=== PATIENT | male | born 1955 | race African-American/Black ===

== ENCOUNTER 2019-08-26 13:56 | Inpatient (IN) | payer OTHER ==
[2019-08-26 16:20] VITALS: BMI 38.5
--- NOTE | 2019-08-26 16:57 | HP ---
CIWA Score Nausea/Vomitin-No Nausea/No Vomiting Muscle Tremors: None Anxiety: 0-No Anxiety, at Ease Agitation: 0-Normal Activity Paroxysmal Sweats: No Perspiration Orientation: 0-Oriented Tacttile Disturbances: 1-Very Mild Itch/Numbness (tingling in R Carpal tunnel syndrome) Auditory Disturbances: 0-None Visual Disturbances: 0-None - Admission Criteria OASAS Guidelines: Admission for Medically Managed Detox: Requires at least one of the followin. CIWA greater than 12 2. Seizures within the past 24 hours 3. Delirium tremens within the past 24 hours 4. Hallucinations within the past 24 hours 5. Acute intervention needed for co occurring medical disorder 6. Acute intervention needed for co occurring psychiatric disorder 7. Severe withdrawal that cannot be handled at a lower level of care (continued vomiting, continued diarrhea, abnormal vital signs) requiring intravenous medication and/or fluids 8. Admitting History and Physical - Admission Chief Complaint: Rehab from THC and cocaine History of Present Illness: Pt is a 63 PMx of hypothyroidism, HTN, on seizure, CVA, depression, anxiety, bipolar here for rehab from cocaine and marijuana. Also uses alcohol. Will go back to [facility] after rehab here. Fell off recovery 09/29 again. Had stroke 2018, arm and leg on L with slurred speech. [facility]- [facility]-March 2018- Jun 2019, regular floor of [facility] for housing so started a cycle -depression, anxiety ETOH Last drink - [place] ice tea Monday Beer- 6 pack daily 1 pint- [place] icetea (wine coolant) No shakes, seizures or blackouts when he doesn't drink THC- utox with THC $10 a day (or 5 per week) Smokes- 2-3 joints daily Last use 9am addicted from 20yrs to THC Cocaine- utox with cocaine gets depressed Uses up $150 a day Last use monday- used $100-150 dollars Started at sniffing at 37yrs -cocaine Cocaine-started smoking- 41yrs Clean off cocaine until 5 months ago, became homeless Used the excuse of the stroke to start using drugs again Nicotine 2 cigs per day Some days none does not have a craving for cigs does not need patch or gum All:Eggs, makes pt throw up no allergies Medical hx: Hypothyroidism- synthroid 150mcg Metoprolol-100, amlodipine 10, lisinopril- 20mg Seizure-never had but on a seizure med, prophylaxis for CVA from air embolism from a missed vein [facility] pharmacy-took all meds today TB test, HIV test neg- March 2018 Never had hepatitis test SX: Gall bladder over 20 years SHx Has supportive family- fiancee, kids, siblings Kids -30, 35yrs. live in [place], aware of pts drug use No current problems with law Incarcerated non violent low level crime - 5 years ago, no court case Has not worked since stroke, worked in [employer] in the past FHx: Addiction hx-Neg Medical hx-HTN- sister, borderline DM-Sister Rehab for cocaine and THC Will cont anti HTN-change amlodipine 10mg HS, cont metoprolol, lisinopril- unable to verify meds EKG- vent rate 68bpm, Q waves , possible LVH, TWI inferiolat leads, normal axis , normal interval, QTC- 501- MaOxide 800mg one time ordered History Source: Patient Limitations to Obtaining History: No Limitations - 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: 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 Cardiovascular: Yes: HTN - Smoking History Smoking history: Current some day smoker Have you smoked in the past 12 months: Yes Aproximately how many cigarettes per day: 1 - Alcohol/Substance Use Hx Alcohol Use: Yes History of Substance Use: reports: Cocaine, Marijuana - Social History Usual Living Arrangement: Yes: Alone Do you think of yourself as: Straight/Heterosexual History of Recent Travel: No Admission ROS S - HPI Allergies/Adverse Reactions: Allergies Allergy/AdvReac Type Severity Reaction Status Date / Time egg AdvReac Intermediate Vomiting Verified 08/26/19 16:15 Egg Derived AdvReac Intermediate Vomiting Verified 08/26/19 16:15 - Ebola screening Have you traveled outside of the country in the last 21 days: No Have you had contact with anyone from an Ebola affected area: No Do you have a fever: No - Review of Systems Constitutional: No Symptoms Reported EENT: reports: Nose Congestion Respiratory: reports: No Symptoms reported Cardiac: reports: No Symptoms Reported GI: reports: No Symptoms Reported : reports: Frequency Musculoskeletal: reports: No Symptoms Reported Integumentary: reports: No Symptoms Reported Neuro: reports: Numbness Endocrine: reports: No Symptoms Reported Hematology: reports: No Symptoms Reported Psychiatric: reports: Mood/Affect Appropiate Patient History - Patient Medical History Hx Hypertension: Yes HX Cerebrovascular Accident: Yes Hx Depression: Yes Hx Bipolar Disorder: Yes - Patient Surgical History Past Surgical History: Yes Hx Abdominal Surgery: Yes (Gall bladder) - PPD History Previous Implant?: Yes Implanted On Prior R Admission?: No - Reproductive History Patient is a Female of Child Bearing Age (11 -55 yrs old): No - Smoking Cessation Smoking history: Current some day smoker Have you smoked in the past 12 months: Yes Aproximately how many cigarettes per day: 1 Hx Chewing Tobacco Use: No Initiated information on smoking cessation: Yes 'Breaking Loose' booklet given: 08/26/19 - Substance & Tx. History Hx Alcohol Use: Yes Hx Substance Use: Yes Substance Use Type: Alcohol, Cocaine, Marijuana - Substances abused Cocaine Substance route: Smoking Frequency: Daily Amount used: $100 Age of first use: 37 Date of last use: 08/23/19 Marijuana/Hashish Substance route: Smoking Frequency: Daily Amount used: $10 Age of first use: 20 Date of last use: 08/25/19 Admission Physical Exam [facility] - Vital Signs Vital Signs: Vital Signs - 24 hr 08/26/19 16:10 Temperature 94.4 F L Pulse Rate 80 Respiratory 17 Rate Blood Pressure 176/95 H - Physical General Appearance: Yes: Obese HEENTM: Yes: Within Normal Limits Respiratory: Yes: Chest Non-Tender, Lungs Clear, Normal Breath Sounds Neck: Yes: Within Normal Limits Cardiology: Yes: Regular Rhythm, S1, S2 Genitourinary: Yes: Within Normal Limits Back: Yes: Within Normal Limits Musculoskeletal: Yes: Other (ambulates with cane) Extremities: Yes: Pedal Edema (b/l 1+ up to mid mccarthy) Neurological: Yes: Within Normal Limits, Motor Strength 5/5 (except LUE and LLE 4/5, residual deficit) Integumentary: Yes: Within Normal Limits Lymphatic: Yes: Within Normal Limits - Diagnostic (1) Cocaine abuse Current Visit: Yes Status: Acute (2) Tetrahydrocannabinol (THC) dependence Current Visit: Yes Status: Acute Cleared for Admission S - Detox or Rehab [facility] Level of Care: Medically Supervised Breathalyzer - Breathalyzer Breathalyzer: 0 Inpatient Rehab Admission - Rehab Decision to Admit Inpatient rehab admission?: Yes - Initial Determination Are CD services needed?: Yes Free of communicable disease: Yes Not in need of hospitalization: Yes - Rehab Admission Criteria Previous failed treatment: Yes Poor recovery environment: Yes Comorbidities: Yes Lacks judgement: Yes Patient is meeting Inpatient Rehab admission criteria:: Yes
[2019-08-26] MEDS ORDERED: MAG HYDROX/AL HYDROX/SIMETH 30 ML UNIT-DOSE CUP PO PRN (17:40)
[2019-08-26] MEDS ORDERED: LOPERAMIDE HCL 2 MG CAPSULE PO PRN (17:40)
[2019-08-26] MEDS ORDERED: MAGNESIUM CITRATE 300 ML BOTTLE PO PRN (17:40)
[2019-08-26] MEDS ORDERED: IBUPROFEN 400 MG TABLET (FP) PO PRN (17:40)
[2019-08-26] MEDS ORDERED: MENTHOL/PHENOL 1 EACH UD MM PRN (17:40)
[2019-08-26] MEDS ORDERED: P-EPHED 60MG/TRIPROLIDI 2.5MG TABLET PO PRN (17:40)
[2019-08-26] MEDS ORDERED: guaiFENesin 200 MG/10 ML 10 ML UNIT-DOSE CUPS PO PRN (17:40)
[2019-08-26] MEDS ORDERED: ACETAMINOPHEN 325 MG TABLET (FP) PO PRN (17:40)
[2019-08-26] MEDS ORDERED: MAGNESIUM HYDROX 2400MG/30ML ORAL SUSPENSION 30 ML CUP PO PRN (17:40)
--- NOTE | 2019-08-26 17:40 | PN ---
Teaching Attending Note Name of Resident: Afshan Heath ATTENDING PHYSICIAN STATEMENT I saw and evaluated the patient. I reviewed the resident's note and discussed the case with the resident. I agree with the resident's findings and plan as documented. SUBJECTIVE: 63 yo with multiple med problems here for cocaine use disorder and marijuana use disorder. Uses daily for self treatment of depression. Occ alcohol use. Here for rehab. OBJECTIVE: Vital Signs - 24 hr 08/26/19 08/26/19 16:10 16:44 Temperature 94.4 F L 97.4 F L Pulse Rate 80 80 Respiratory 17 17 Rate Blood Pressure 176/95 H 176/95 H ASSESSMENT AND PLAN: AUD- here for rehab from cocaine/marijuana, occ alcohol use continue treatment for HTN.
[2019-08-26] MEDS ORDERED: MAGNESIUM OXIDE 400 MG TABLET (FP) PO ONE (19:30)
[2019-08-26] MEDS ORDERED: TUBERCULIN PPD 5 TU/0.1ML VIAL ID ONE (22:09)
[2019-08-26] MEDS: amLODIPine BESYLATE 10 MG TABLET (FP) PO SCH (22:10)
[2019-08-26] MEDS: THIAMINE HCL 100 MG TABLET (FP) PO SCH (22:15)
[2019-08-27] MEDS: LEVOTHYROXINE NA 150 MCG TABLET PO SCH (06:05)
--- NOTE | 2019-08-27 09:08 | EKG ---
Test Reason : Blood Pressure : / mmHG Vent. Rate : 068 BPM Atrial Rate : 068 BPM P-R Int : 158 ms QRS Dur : 086 ms QT Int : 472 ms P-R-T Axes : 066 -13 004 degrees QTc Int : 501 ms NORMAL SINUS RHYTHM MINIMAL VOLTAGE CRITERIA FOR LVH, MAY BE NORMAL VARIANT NONSPECIFIC ST AND T WAVE ABNORMALITY PROLONGED QT ABNORMAL ECG NO PREVIOUS ECGS AVAILABLE Confirmed by Moises Valladares MD ([id number]) on 08/27/2019 9:08:09 AM Referred By: Confirmed By:Moises Valladares MD
--- NOTE | 2019-08-27 09:16 | CONSULT ---
[facility] Psychiatric Consult - Data Date of interview: 08/27/19 Admission source: [facility] Identifying data: Patient is a 63 year old single male, without children, unemployed (disabled), currently homeless, and is supported by [facility]. This is patient's first admission to [facility]. Patient admitted to for cocaine dependence. Substance Abuse History: Smoking Cessation. Smoking history: Current some day smoker. Have you smoked in the past 12 months: Yes. Aproximately how many cigarettes per day: 1. Hx Chewing Tobacco Use: No. Initiated information on smoking cessation: Yes. 'Breaking Loose' booklet given: 08/26/19. - Substance & Tx. History. Hx Alcohol Use: Yes. Hx Substance Use: Yes. Substance Use Type : Alcohol, Cocaine, Marijuana. - Substances abused. Cocaine. Substance route: Smoking. Frequency: Daily. Amount used: $100. Age of first use: 37. Date of last use: 08/23/19. Marijuana/Hashish. Substance route: Smoking. Frequency: Daily. Amount used: $10. Age of first use: 20. Date of last use: 08/25/19 Medical History: Hypothyroidism, hypertension, seizures, CVA Psychiatric History: Mr. Chaudhry's first psychiatric contact was approximately five years ago at [facility] in [place], [place]. States he saw the psychiatrist and therapist for two years to address any issues he was experiencing during that time. He reports being diagnosed with Bipolar disorder but never accepted medications. Mr. Chaudhry denies history of psychiatric hospitalization and suicide attempt. At present he reports feeling sad due to relapsing. Physical/Sexual Abuse/Trauma History: denies. Mental Status Exam - Mental Status Exam Alert and Oriented to: Time, Place, Person Cognitive Function: Good Patient Appearance: Well Groomed Mood: Withdrawn Affect: Mood Congruent Patient Behavior: Fatigued, Cooperative Speech Pattern: Appropriate Voice Loudness: Mildly Soft/Quiet Thought Process: Goal Oriented Thought Disorder: Not Present Hallucinations: Denies Suicidal Ideation: Denies Homicidal Ideation: Denies Insight/Judgement: Poor Sleep: Fair Appetite: Fair Muscle strength/Tone: Normal Gait/Station: Other (Ambulates with a cane.) Psychiatric Findings - Problem List ([place] 1, 2,3) (1) Substance induced mood disorder Current Visit: Yes Status: Acute (2) Cocaine abuse Current Visit: Yes Status: Acute - Initial Treatment Plan Initial Treatment Plan: Psychoeducation provided. Rehab in progress. Observation.
[2019-08-27] MEDS ORDERED: amLODIPine BESYLATE 10 MG TABLET (FP) PO SCH (10:00)
[2019-08-27] MEDS: PRENATAL VITAMINS W/ FOLIC ACID TABLET (FP) PO SCH (10:16)
[2019-08-27] MEDS: LISINOPRIL 20 MG TABLET (FP) PO SCH (10:16)
[2019-08-27 11:02] LABS: URINE APPEARANCE CLEAR; URINE BILIRUBIN NEGATIVE (NEGATIVE); URINE COLOR YELLOW; URINE GLUCOSE (UA) NEGATIVE (NEGATIVE); URINE KETONE NEGATIVE (NEGATIVE); URINE LEUK ESTERASE NEGATIVE (NEGATIVE); URINE NITRITE NEGATIVE (NEGATIVE); URINE PROTEIN NEGATIVE (NEGATIVE)
[2019-08-27 12:05] LABS: HEMOGLOBIN 13.9 GM/dL (11.7-16.9); MCHC 32.3 g/dl (32.0-35.9); MEAN CELL VOLUME 80.5 fl (80-96); MEAN PLT VOLUME 9.7 fl (7.5-11.1); PLATELET COUNT 199 K/MM3 (134-434); RBC 5.34 M/mm3 (4.00-5.60); RDW 17.5 % (11.9-15.9); WHITE BLOOD COUNT 4.7 K/mm3 (4.0-10.0)
[2019-08-27 12:12] LABS: BILIRUBIN,TOTAL 0.6 mg/dL (0.2-1); BLOOD UREA NITROGEN 12.5 mg/dL (7-18); CREATININE 1.1 mg/dL (0.55-1.3); POTASSIUM 3.9 mmol/L (3.5-5.1); TOT PROT 6.6 g/dl (6.4-8.2)
[2019-08-27] MEDS: amLODIPine BESYLATE 10 MG TABLET (FP) PO SCH (21:41)
[2019-08-27] MEDS: THIAMINE HCL 100 MG TABLET (FP) PO SCH (21:42)
[2019-08-28] MEDS: LEVOTHYROXINE NA 150 MCG TABLET PO SCH (06:27)
[2019-08-28] MEDS: LISINOPRIL 20 MG TABLET (FP) PO SCH (10:00)
[2019-08-28] MEDS: PRENATAL VITAMINS W/ FOLIC ACID TABLET (FP) PO SCH (10:01)
--- NOTE | 2019-08-28 11:16 | PN ---
S Progress Note (SOAP) Subjective: Admitted to [facility] [place] [facility] PMHx: History of Present Illness: Pt is a 63 PMx of hypothyroidism, HTN, on seizure, CVA, depression, anxiety, bipolar here for rehab from cocaine and marijuana. Also uses alcohol. Will go back to [facility] after rehab here. Fell off recovery 09/29 again. Had stroke 2017, arm and leg on L with slurred speech. TBI prog- [facility]-March 2018- Jun 2019, regular floor of [facility] for housing so started a cycle -depression, anxiety ETOH Last drink - [place] ice tea Monday Beer- 6 pack daily 1 pint- [place] icetea (wine coolant) No shakes, seizures or blackouts when he doesn't drink THC- utox with THC $10 a day (or 5 per week) Smokes- 2-3 joints daily Last use 9am addicted from 20yrs to THC Cocaine- utox with cocaine gets depressed Uses up $150 a day Last use monday- used $100-150 dollars Started at sniffing at 37yrs -cocaine Cocaine-started smoking- 41yrs Clean off cocaine until 5 months ago, became homeless Used the excuse of the stroke to start using drugs again Nicotine 2 cigs per day Some days none does not have a craving for cigs does not need patch or gum Medical hx: Hypothyroidism- synthroid 150mcg Metoprolol-100, amlodipine 10, lisinopril- 20mg Seizure-never had but on a seizure med, prophylaxis for CVA from air embolism from a missed vein TB test, HIV test neg- March 2018 Never had hepatitis test SX: Gall bladder over 20 years SHx Has supportive family- fiancee, kids, siblings Kids -30, 35yrs. 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
[2019-08-28] MEDS: THIAMINE HCL 100 MG TABLET (FP) PO SCH (21:40)
[2019-08-28] MEDS: amLODIPine BESYLATE 10 MG TABLET (FP) PO SCH (21:40)
[2019-08-29] MEDS: LEVOTHYROXINE NA 150 MCG TABLET PO SCH (06:04)
[2019-08-29] MEDS: PRENATAL VITAMINS W/ FOLIC ACID TABLET (FP) PO SCH (10:09)
[2019-08-29] MEDS: LISINOPRIL 20 MG TABLET (FP) PO SCH (10:09)
[2019-08-29] MEDS ORDERED: INSULIN (NOVOLOG) ASPART 100 UNITS/ML 10ML VIAL ONE (11:54)
[2019-08-29] MEDS: THIAMINE HCL 100 MG TABLET (FP) PO SCH (21:00)
[2019-08-29] MEDS: amLODIPine BESYLATE 10 MG TABLET (FP) PO SCH (21:00)
[2019-08-30] MEDS: LEVOTHYROXINE 100 MCG, LEVOTHYROXINE 50 MCG PO SCH (06:17)
[2019-08-30] MEDS ORDERED: cloNIDine HCL 0.1 MG TABLET PO ONE (07:25)
--- NOTE | 2019-08-30 07:29 | PN ---
[facility] Progress Note Note: Patient's blood pressure is B/P Patient is asymptomatic Vital Signs - 8 hr 08/30/19 08/30/19 08/30/19 00:30 03:30 06:58 Temperature 97.3 F L Pulse Rate 56 L Respiratory 20 18 18 Rate Blood Pressure 158/101 H 08/30/19 07:24 Temperature Pulse Rate Respiratory Rate Blood Pressure 165/93 Action: Clonidine 0.1mg tablet oral
[2019-08-30] MEDS: PRENATAL VITAMINS W/ FOLIC ACID TABLET (FP) PO SCH (10:24)
[2019-08-30] MEDS: LISINOPRIL 20 MG TABLET (FP) PO SCH (10:24)
--- NOTE | 2019-08-30 14:02 | PN ---
[facility] Progress Note (SOAP) Subjective: Patient wants his BP medication reviewed. States he has his medications downstairs. BP is consistently elevated. Objective: 08/30/19 14:18 Vital Signs (72 hours) 08/28/19 08/28/19 08/28/19 00:30 03:30 07:03 Temperature 97 F L Pulse Rate 55 L Respiratory 18 18 18 Rate Blood Pressure 150/91 08/28/19 08/28/19 08/29/19 11:17 20:46 00:30 Temperature 97 F L Pulse Rate 61 56 L Respiratory 18 18 18 Rate Blood Pressure 148/96 175/99 H 08/29/19 08/29/19 08/29/19 03:30 06:42 09:30 Temperature 97.5 F L Pulse Rate 56 L 61 Respiratory 18 18 18 Rate Blood Pressure 158/98 159/92 08/29/19 08/30/19 08/30/19 21:30 00:30 03:30 Temperature Pulse Rate 54 L Respiratory 18 20 18 Rate Blood Pressure 157/86 08/30/19 08/30/19 08/30/19 06:58 07:24 10:00 Temperature 97.3 F L 98.1 F Pulse Rate 56 L 56 L Respiratory 18 19 Rate Blood Pressure 158/101 H 165/93 141/87 08/30/19 14:19 P/E; General: no apparent distress HEENTM:PERRLA NEck: supple Lungs: clear Heart: s1 s2 Assessment: Hypertension 08/30/19 14:19 Plan: medications reviewed. He is getting all prescribed medications. However, he takes the metropolol twice a day and it is on his medication list as once a day. This has been corrected. Will continue to monitor.
[2019-08-30] MEDS ORDERED: PT OWN MED DRAWER 7, Y5N ONE ×2 (16:01→21:36)
[2019-08-30] MEDS: MELATONIN 5 MG TABLETS PO PRN (22:07)
[2019-08-30] MEDS: amLODIPine BESYLATE 10 MG TABLET (FP) PO SCH (22:07)
[2019-08-30] MEDS: THIAMINE HCL 100 MG TABLET (FP) PO SCH (22:08)
[2019-08-31] MEDS: LEVOTHYROXINE 100 MCG, LEVOTHYROXINE 50 MCG PO SCH (06:46)
[2019-08-31] MEDS: PRENATAL VITAMINS W/ FOLIC ACID TABLET (FP) PO SCH (10:03)
[2019-08-31] MEDS: LISINOPRIL 20 MG TABLET (FP) PO SCH (10:03)
[2019-08-31] MEDS: amLODIPine BESYLATE 10 MG TABLET (FP) PO SCH (21:46)
[2019-08-31] MEDS: THIAMINE HCL 100 MG TABLET (FP) PO SCH (21:46)
[2019-08-31] MEDS: MELATONIN 5 MG TABLETS PO PRN (21:47)
[2019-09-01] MEDS: LEVOTHYROXINE 100 MCG, LEVOTHYROXINE 50 MCG PO SCH (06:43)
[2019-09-01] MEDS: LISINOPRIL 20 MG TABLET (FP) PO SCH (09:40)
[2019-09-01] MEDS: PRENATAL VITAMINS W/ FOLIC ACID TABLET (FP) PO SCH (09:40)
[2019-09-01] MEDS: amLODIPine BESYLATE 10 MG TABLET (FP) PO SCH (21:33)
[2019-09-01] MEDS: THIAMINE HCL 100 MG TABLET (FP) PO SCH (21:33)
[2019-09-02] MEDS: LEVOTHYROXINE 100 MCG, LEVOTHYROXINE 50 MCG PO SCH (06:08)
[2019-09-02] MEDS: PRENATAL VITAMINS W/ FOLIC ACID TABLET (FP) PO SCH (10:15)
[2019-09-02] MEDS: LISINOPRIL 20 MG TABLET (FP) PO SCH (10:15)
--- NOTE | 2019-09-02 10:54 | PN ---
[facility] Progress Note Note: PATIENT STATES HE BP MEDICATIONS WERE CHANGED PRIOR TO ADMISSION AT [facility] BUT DOES NOT KNOW NAMES OF MEDICATIONS. HIS MEDICAL RECORDS ARE AT [facility] AND HE WAS REFERRED TO FOLLOW UP WITH COUNSELOR TO SIGN CONSENT TO OBTAIN RECORDS ASSESS HIS MEDICATION PROFILE. WILL CONTINUE CURRENT MEDICATION REGIMEN ORDERED. PATIENT'S BP HAS BEEN ELEVATED, REFUSED DOSE LAST NIGHT. HE DENIES CHEST PAIN, SOB AND DIZZINESS. HE WAS ADVISED TO TAKE MEDICATION ORDERED WHICH HE STATES HE WILL COMPLY. Vital Signs (72 hours) 08/30/19 08/31/19 08/31/19 21:34 00:30 03:30 Temperature Pulse Rate 53 L Respiratory 18 18 18 Rate Blood Pressure 153/88 08/31/19 08/31/19 08/31/19 07:01 09:30 22:00 Temperature 98.3 F Pulse Rate 57 L 53 L 54 L Respiratory 18 Rate Blood Pressure 163/93 156/98 171/79 H 09/01/19 09/01/19 09/01/19 00:30 03:30 06:55 Temperature 97.7 F Pulse Rate 51 L Respiratory 18 18 20 Rate Blood Pressure 154/89 09/01/19 09/01/19 09/02/19 09:30 20:32 03:30 Temperature Pulse Rate 55 L 54 L Respiratory 18 18 18 Rate Blood Pressure 145/91 161/83 09/02/19 09/02/19 09/02/19 06:47 07:15 09:30 Temperature 97.9 F Pulse Rate 51 L 57 L Respiratory 18 18 Rate Blood Pressure 181/96 H 181/81 H 156/97
[2019-09-02] MEDS: amLODIPine BESYLATE 10 MG TABLET (FP) PO SCH (22:27)
[2019-09-02] MEDS: THIAMINE HCL 100 MG TABLET (FP) PO SCH (22:27)
[2019-09-03] MEDS: LEVOTHYROXINE 100 MCG, LEVOTHYROXINE 50 MCG PO SCH (06:02)
[2019-09-03] MEDS: PRENATAL VITAMINS W/ FOLIC ACID TABLET (FP) PO SCH (09:37)
[2019-09-03] MEDS: LISINOPRIL 20 MG TABLET (FP) PO SCH ×2 (09:37→21:27)
--- NOTE | 2019-09-03 14:49 | PN ---
[facility] Progress Note (SOAP) Subjective: Continues with elevated BP Objective: 09/03/19 14:47 General: No apparent distress HEENTM: normocephalic, PERRLA Lungs: clear Heart: s1 s2 ABD: +B Neuro: CM 2-12 intact, muscle strength equal Assessment: HTN 09/03/19 14:48 Plan: Increased lisinopril to 20mg BID. Will continue to monitor.
[2019-09-03] MEDS ORDERED: PT OWN MED DRAWER 7, Y5N ONE (19:10)
[2019-09-03] MEDS: amLODIPine BESYLATE 10 MG TABLET (FP) PO SCH (21:27)
[2019-09-03] MEDS: THIAMINE HCL 100 MG TABLET (FP) PO SCH (21:27)
[2019-09-03] MEDS: MELATONIN 5 MG TABLETS PO PRN (21:27)
[2019-09-04] MEDS: LEVOTHYROXINE 100 MCG, LEVOTHYROXINE 50 MCG PO SCH (06:25)
[2019-09-04] MEDS: LISINOPRIL 20 MG TABLET (FP) PO SCH ×2 (10:15→21:35)
[2019-09-04] MEDS: PRENATAL VITAMINS W/ FOLIC ACID TABLET (FP) PO SCH (10:15)
[2019-09-04] MEDS: MELATONIN 5 MG TABLETS PO PRN (21:35)
[2019-09-04] MEDS: amLODIPine BESYLATE 10 MG TABLET (FP) PO SCH (21:35)
[2019-09-04] MEDS: THIAMINE HCL 100 MG TABLET (FP) PO SCH (21:35)
[2019-09-05] MEDS ORDERED: PT OWN MED DRAWER 7, Y5N ONE (04:17)
[2019-09-05] MEDS: LEVOTHYROXINE 100 MCG, LEVOTHYROXINE 50 MCG PO SCH (06:38)
[2019-09-05] MEDS: PRENATAL VITAMINS W/ FOLIC ACID TABLET (FP) PO SCH (10:11)
[2019-09-05] MEDS: LISINOPRIL 20 MG TABLET (FP) PO SCH ×2 (10:11→21:44)
[2019-09-05] MEDS: MELATONIN 5 MG TABLETS PO PRN (21:44)
[2019-09-05] MEDS: THIAMINE HCL 100 MG TABLET (FP) PO SCH (21:44)
[2019-09-05] MEDS: amLODIPine BESYLATE 10 MG TABLET (FP) PO SCH (21:44)
[2019-09-06] MEDS: LEVOTHYROXINE 100 MCG, LEVOTHYROXINE 50 MCG PO SCH (06:56)
[2019-09-06] MEDS ORDERED: PT OWN MED DRAWER 7, Y5N ONE (08:27)
[2019-09-06] MEDS: LISINOPRIL 20 MG TABLET (FP) PO SCH ×2 (10:24→21:38)
[2019-09-06] MEDS: PRENATAL VITAMINS W/ FOLIC ACID TABLET (FP) PO SCH (10:24)
--- NOTE | 2019-09-06 15:10 | PN ---
[facility] Progress Note Note: Patient states he is taking seizure medication after having CVA. Last dose two weeks ago. Name of medication unknown, listed pharmacy: [facility] called, no answer-only personal recording of female person, no external hx of medications available. Patient advised to call [facility] to have hospital records faxed to [facility]. Vital Signs Temperature 98.2 F 09/06/19 07:22 Pulse Rate 53 L 09/06/19 09:10 Respiratory Rate 18 09/06/19 07:22 Blood Pressure 148/99 09/06/19 09:10 O2 Sat by Pulse Oximetry (%)
[2019-09-06] MEDS: amLODIPine BESYLATE 10 MG TABLET (FP) PO SCH (21:38)
[2019-09-06] MEDS: THIAMINE HCL 100 MG TABLET (FP) PO SCH (21:38)
[2019-09-06] MEDS: MELATONIN 5 MG TABLETS PO PRN (21:38)
[2019-09-07] MEDS: LEVOTHYROXINE 100 MCG, LEVOTHYROXINE 50 MCG PO SCH (06:18)
[2019-09-07] MEDS: LISINOPRIL 20 MG TABLET (FP) PO SCH ×2 (10:12→22:05)
[2019-09-07] MEDS: PRENATAL VITAMINS W/ FOLIC ACID TABLET (FP) PO SCH (10:12)
[2019-09-07] MEDS: THIAMINE HCL 100 MG TABLET (FP) PO SCH (22:05)
[2019-09-07] MEDS: amLODIPine BESYLATE 10 MG TABLET (FP) PO SCH (22:05)
[2019-09-08] MEDS: LEVOTHYROXINE 100 MCG, LEVOTHYROXINE 50 MCG PO SCH (06:30)
[2019-09-08] MEDS: LISINOPRIL 20 MG TABLET (FP) PO SCH ×2 (09:50→23:33)
[2019-09-08] MEDS: PRENATAL VITAMINS W/ FOLIC ACID TABLET (FP) PO SCH (09:50)
[2019-09-08] MEDS ORDERED: PT OWN MED DRAWER 7, Y5N ONE (14:50)
[2019-09-08] MEDS: THIAMINE HCL 100 MG TABLET (FP) PO SCH (23:33)
[2019-09-08] MEDS: amLODIPine BESYLATE 10 MG TABLET (FP) PO SCH (23:33)
[2019-09-09] MEDS: LEVOTHYROXINE 100 MCG, LEVOTHYROXINE 50 MCG PO SCH (06:27)
[2019-09-09] MEDS: LISINOPRIL 20 MG TABLET (FP) PO SCH ×2 (09:58→21:44)
[2019-09-09] MEDS: PRENATAL VITAMINS W/ FOLIC ACID TABLET (FP) PO SCH (09:58)
[2019-09-09] MEDS: CYCLOBENZAPRINE HCL 5 MG TABLET PO SCH ×2 (15:55→21:44)
[2019-09-09] MEDS: THIAMINE HCL 100 MG TABLET (FP) PO SCH (21:44)
[2019-09-09] MEDS: amLODIPine BESYLATE 10 MG TABLET (FP) PO SCH (21:44)
[2019-09-09] MEDS: MELATONIN 5 MG TABLETS PO PRN (21:44)
[2019-09-10] MEDS: CYCLOBENZAPRINE HCL 5 MG TABLET PO SCH ×3 (05:48→21:57)
[2019-09-10] MEDS: LEVOTHYROXINE 100 MCG, LEVOTHYROXINE 50 MCG PO SCH (06:05)
[2019-09-10] MEDS: PRENATAL VITAMINS W/ FOLIC ACID TABLET (FP) PO SCH (09:52)
[2019-09-10] MEDS: LISINOPRIL 20 MG TABLET (FP) PO SCH ×2 (09:52→21:57)
[2019-09-10] MEDS: amLODIPine BESYLATE 10 MG TABLET (FP) PO SCH (21:57)
[2019-09-10] MEDS: THIAMINE HCL 100 MG TABLET (FP) PO SCH (21:57)
[2019-09-11] MEDS: CYCLOBENZAPRINE HCL 5 MG TABLET PO SCH ×3 (06:26→21:45)
[2019-09-11] MEDS: LEVOTHYROXINE 100 MCG, LEVOTHYROXINE 50 MCG PO SCH (06:26)
[2019-09-11] MEDS: LISINOPRIL 20 MG TABLET (FP) PO SCH ×2 (10:00→21:45)
[2019-09-11] MEDS: PRENATAL VITAMINS W/ FOLIC ACID TABLET (FP) PO SCH (10:00)
[2019-09-11] MEDS: THIAMINE HCL 100 MG TABLET (FP) PO SCH (21:43)
[2019-09-11] MEDS: MELATONIN 5 MG TABLETS PO PRN (21:43)
[2019-09-11] MEDS: amLODIPine BESYLATE 10 MG TABLET (FP) PO SCH (21:45)
[2019-09-12] MEDS: CYCLOBENZAPRINE HCL 5 MG TABLET PO SCH ×3 (06:41→21:33)
[2019-09-12] MEDS: LEVOTHYROXINE 100 MCG, LEVOTHYROXINE 50 MCG PO SCH (06:41)
[2019-09-12] MEDS: PRENATAL VITAMINS W/ FOLIC ACID TABLET (FP) PO SCH (10:02)
[2019-09-12] MEDS: LISINOPRIL 20 MG TABLET (FP) PO SCH ×2 (10:03→21:33)
[2019-09-12] MEDS ORDERED: PT OWN MED DRAWER 7, Y5N ONE (20:11)
[2019-09-12] MEDS: THIAMINE HCL 100 MG TABLET (FP) PO SCH (21:33)
[2019-09-12] MEDS: amLODIPine BESYLATE 10 MG TABLET (FP) PO SCH (21:33)
[2019-09-13] MEDS: CYCLOBENZAPRINE HCL 5 MG TABLET PO SCH (05:58)
[2019-09-13] MEDS: LEVOTHYROXINE 100 MCG, LEVOTHYROXINE 50 MCG PO SCH (06:01)
[2019-09-13 06:31] VITALS: BP 153/89; PULSE 62; TEMP 98.4
--- NOTE | 2019-09-13 08:38 | DS ---
[facility] Rehab Discharge Summary - [facility] Rehab Discharge Summary Admission Date: 08/26/19 Discharge Date: 09/13/19 - History Present History: Cannabis dependence, Cocaine dependence Pertinent Past History: Chief Complaint: Rehab from THC and cocaine History of Present Illness: Pt is a 63 PMx of hypothyroidism, HTN, on seizure, CVA, depression, anxiety, bipolar here for rehab from cocaine and marijuana. Also uses alcohol.Had stroke 2017, arm and leg on L with slurred speech. TBI prog- [facility]-March 2018- Jun 2019, regular floor of [facility] for housing so started a cycle -depression, anxiety ETOH Beer- 6 pack daily 1 pint- [place] icetea (wine coolant) No shakes, seizures or blackouts when he doesn't drink THC- utox with THC $10 a day (or 5 per week) Smokes- 2-3 joints daily addicted from 20yrs to THC Cocaine- utox with cocaine gets depressed Uses up $150 a day Last use monday- used $100-150 dollars Started at sniffing at 37yrs -cocaine Cocaine-started smoking- 41yrs Clean off cocaine until 5 months ago, became homeless Used the excuse of the stroke to start using drugs again Nicotine 2 cigs per day Some days none does not have a craving for cigs does not need patch or gu Medical hx: Hypothyroidism- synthroid 150mcg Metoprolol-100, amlodipine 10, lisinopril- 20mg Seizure-never had but on a seizure med, prophylaxis for CVA from air embolism from a missed vein [facility] pharmacy-took all meds today TB test, HIV test neg- March 2018 Never had hepatitis test SX: Gall bladder over 20 years SHx Has supportive family- fiancee, kids, siblings Kids -30, 35yrs. 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 FHx: Addiction hx-Neg Medical hx-HTN- sister, borderline DM-Sister - Discharge Physical Exam Vital Signs: Vital Signs Temperature 98.4 F 09/13/19 06:30 Pulse Rate 62 09/13/19 06:30 Respiratory Rate 18 09/13/19 06:30 Blood Pressure 153/89 09/13/19 06:30 O2 Sat by Pulse Oximetry (%) Pertinent Admission Physical Exam Findings: General Appearance: No apparent distress HEENTM: Normocephalic Respiratory: Lungs Clear, Neck: supple Cardiology:, S1, S2 Musculoskeletal: ambulates with cane Neurological: Motor Strength 5/5 (except LUE and LLE 4/5, residual deficit) - Treatment Discharge Condition: Discharge condition good (Medically stable for discharge.) Hospital Course: Patient attended groups, had 1:1 with his counselor, was seen by psychiatric service. He was treated for elevated BP while he was in rehab. We also attempted to secure a medication list from his PCP because he stated he was on seizure medication and did not know the name. To date, after daily calls, we have not received that information. Patient did not experience any seizures while in rehab. - Medication Discharge Medications: Ambulatory Orders Lisinopril 20 mg PO DAILY 08/26/19 Amlodipine Besylate [Norvasc -] 10 mg PO DAILY #20 tablet 09/13/19 Levothyroxine [Synthroid -] 150 mcg PO DAILY #20 tablet 09/13/19 Metoprolol Succinate 100 mg PO DAILY #20 tab.[id number] 09/13/19 - Medication-Assisted Treatment (MAT) Medication-Assisted Treatment (MAT): No - Discharge Instructions Diet, activity, other medical instructions: Diet: as tolerated Activity: as tolerated Other medical instructions: Please follow up with aftercare referral. Please follow up with PCP for home medication list. - Diagnosis (1) Cocaine abuse Current Visit: Yes Status: Chronic - Follow-up Referral Minutes to complete discharge: 20 - AMA Did Patient Leave Against Medical Advice: No
[2019-09-13] MEDS: LISINOPRIL 20 MG TABLET (FP) PO SCH (09:10)
[2019-09-13] MEDS: PRENATAL VITAMINS W/ FOLIC ACID TABLET (FP) PO SCH (09:10)
[2019-09-13] MEDS ORDERED: PT OWN MED DRAWER 7, Y5N ONE (09:10)
== END 2019-09-13 09:20 | disposition home or self-care (01) | DRG 772 ==
LOC: YASAS 13:56 → Y3W 19:05
PROVIDERS: ADMIT Neuromusculoskeletal Medicine & OMM; ATTEND Neuromusculoskeletal Medicine & OMM
PROC: HZ42ZZZ Group Counseling for Substance Abuse Treatment, Cognitive-Behavioral (ICD-10-PCS; principal; 2019-08-26)
DX: F10.20 Alcohol dependence, uncomplicated (principal); F14.20 Cocaine dependence, uncomplicated; F12.20 Cannabis dependence, uncomplicated; F17.210 Nicotine dependence, cigarettes, uncomplicated; F19.24 Other psychoactive substance dependence with psychoactive substance-induced mood disorder; F41.8 Other specified anxiety disorders; F32.9 Major depressive disorder, single episode, unspecified; I10 Essential (primary) hypertension; E03.9 Hypothyroidism, unspecified; Z86.73 Personal history of transient ischemic attack (TIA), and cerebral infarction without residual deficits; Z99.89 Dependence on other enabling machines and devices; Z91.012 Allergy to eggs
CPT/HCPCS: 36415; 80053; 81003; 82962; 85027; 86593; 86803; 87389; 93005; 93010; J0735